=== PATIENT | male | born 1955 | race Caucasian/White ===

== ENCOUNTER 2018-07-30 07:32 | Day surgery (SDC) | payer BC, OTHER ==
[2018-07-27 15:25] VITALS: BMI 32.1
[2018-07-30] MEDS ORDERED: MIDAZOLAM HCL 2 MG/2 ML SINGLE DOSE VIAL ONE (09:35)
[2018-07-30] MEDS ORDERED: PROPOFOL 20 ML ONE (09:36)
[2018-07-30] MEDS ORDERED: DEXAMETHASONE SOD PHOSPHATE 4 MG/1 ML VIAL ONE (10:12)
--- NOTE | 2018-07-30 10:18 | OP ---
Operative Note - Note: Operative Date: 07/30/18 Pre-Operative Diagnosis: hematuria/urethral stricture Operation: cystoscopy/urethral dilation Findings: moderate bulbous ureteral stricture Post-Operative Diagnosis: Same as Pre-op Surgeon: Momo Maza Anesthesia: General
[2018-07-30] MEDS ORDERED: PROMETHAZINE HCL 25 MG/1 ML VIAL IVPUSH PRN (10:24)
[2018-07-30] MEDS ORDERED: oxyCODONE HCL 5 MG TABLET PO PRN (10:24)
[2018-07-30 13:26] VITALS: BP 132/76; PULSE 74; TEMP 98.6
--- NOTE | 2018-07-30 18:27 | OP ---
DATE OF OPERATION: 07/30/2018 PREOPERATIVE DIAGNOSES: Microscopic hematuria and urethral stricture. POSTOPERATIVE DIAGNOSES: Microscopic hematuria and urethral stricture. PROCEDURE: Cystoscopy and urethral dilation. ATTENDING: Idalmis Gomez MD ANESTHESIA: General. OPERATION: The patient has a history of urethral stricture noted on office cystoscopy. A cystoscopy could not be performed in the office setting due to the stricture. The patient accepts all risks and benefits for the designated procedure today. Patient is placed in a supine position on the operating room table. General anesthesia and preoperative antibiotics were administered. Patient was then placed in the dorsal lithotomy position and prepped and draped in the usual sterile manner. A cystoscopy was performed, and a bulbous urethral stricture was noted. Sounds were utilized, and the urethra was dilated sequentially to 26-Sing[place]an. No complications were noted during the dilation. At this point, cystoscopy was performed, and the prostatic fossa was entered. The sphincteric mechanism was noted to be intact with no evidence of false passage in this area. A 3+ obstructive prostate with a 2+ to 3+ bladder neck is noted. No evidence of a median lobe is appreciated. The bladder was inspected, and there was no evidence of neoplasm or stones. One plus large trabeculations were appreciated. Both ureteral orifices appear to be normal. Efflux of urine is noted from both ureteral orifices. The patient tolerated the procedure very well. No complication was noted. The patient left without a Shay catheter. IDALMIS GOMEZ M.D. /[id number]
== END 2018-07-30 13:40 | disposition home or self-care (01) ==
LOC: JASU-SURG 07:32
PROVIDERS: ATTEND Urology
PROC: 0T7D8ZZ Dilation of Urethra, Via Natural or Artificial Opening Endoscopic (ICD-10-PCS; principal; 2018-07-30 09:00)
DX: N35.919 Unspecified urethral stricture, male, unspecified site (principal); I10 Essential (primary) hypertension; G47.30 Sleep apnea, unspecified
CPT/HCPCS: 94760

== ENCOUNTER 2020-03-19 06:27 | Day surgery (SDC) | payer OTHER, BC ==
--- NOTE | 2020-03-18 13:58 | HP ---
[facility] - Chief Complaint Chief Complaint: left hand pain, numbness - Past Medical History Allergies/Adverse Reactions: Allergies Allergy/AdvReac Type Severity Reaction Status Date / Time chlorthalidone Allergy Rash Verified 03/13/20 14:32 telmisartan Allergy "facial Verified 07/27/18 15:39 swelling/distortion) - Current Medications Current Medications: Home Medications Medication Instructions Recorded Aspirin Coated [Ecotrin -] 81 mg PO DAILY 07/27/18 Atorvastatin Ca [Lipitor] 10 mg PO HS 07/27/18 Flecainide Acetate 150 mg PO BID 07/27/18 Amlodipine Besylate 10 mg PO DAILY 03/13/20 Satellite Physical Exam - Physical Examination General Appearance: Well Nourished, Well Developed, Alert & Oriented x3 ENT: Clear Lung: Normal air movement Extremities: Other (left hand- + tinels, + phalens, emg + cts) Neurological: Intact, Alert, Oriented [facility]ellite Impression/Plan - Impression/Plan Impression: left cts Operative Procedure: left ctr Date to be Performed: 03/18/20
[2020-03-19 07:29] VITALS: BMI 31.4
[2020-03-19] MEDS ORDERED: LIDOCAINE HCL/PF 2% SDV 5ML VIAL ONE (08:37)
[2020-03-19] MEDS ORDERED: KETOROLAC TROMETHAMINE 30 MG/1 ML VIAL ONE (08:37)
[2020-03-19] MEDS ORDERED: ONDANSETRON 4 MG/2 ML VIAL ONE (08:37)
[2020-03-19] MEDS ORDERED: PROPOFOL 20 ML ONE (08:38)
[2020-03-19] MEDS ORDERED: MIDAZOLAM HCL 2 MG/2 ML SINGLE DOSE VIAL ONE (08:38)
[2020-03-19] MEDS ORDERED: LIDOCAINE HCL 1%, 10 MG/ML (20ML VIAL) ONE (08:39)
[2020-03-19] MEDS ORDERED: BUPIVACAINE HCL/PF 0.25% (2.5MG/ML) 10 ML VIAL ONE (08:39)
[2020-03-19] MEDS ORDERED: ceFAZolin SODIUM 1 GM VIAL ONE (08:56)
[2020-03-19] MEDS ORDERED: oxyCODONE HCL 5 MG TABLET PO PRN (09:42)
[2020-03-19] MEDS ORDERED: ONDANSETRON 4 MG/2 ML VIAL IVPUSH PRN (09:42)
[2020-03-19] MEDS ORDERED: LACTATED RINGERS SOLUTION 1,000 ML IV SCH (09:45)
--- NOTE | 2020-03-19 09:46 | OP ---
Operative Note - Note: Operative Date: 03/19/20 Pre-Operative Diagnosis: left CTS Operation: left CTR, tenosynovectomy Post-Operative Diagnosis: Same as Pre-op Surgeon: Scar Hopkins Anesthesiologist/ARCHIVIST: Linda Solorzano Anesthesia: Local, MAC Specimens Removed: tenosynovium Estimated Blood Loss (mls): 0 Drains, Volume Out (mls): 0 Blood Volume Replaced (mls): 0 Fluid Volume Replaced (mls): 500 Operative Report Dictated: Yes
[2020-03-19 11:11] VITALS: PULSE 58; TEMP 98.1
[2020-03-19 11:47] VITALS: BP 130/72
--- NOTE | 2020-03-19 23:32 | SPEC ---
DATE OF OPERATION: 03/19/2020 PREOPERATIVE DIAGNOSIS: Left carpal tunnel syndrome, tenosynovitis. POSTOPERATIVE DIAGNOSIS: Left carpal tunnel syndrome, tenosynovitis. PROCEDURE: Left carpal tunnel release and tenosynovectomy. SURGEON: Kathya Martinez MD. CATERER'S AIDE: None. ANESTHESIOLOGIST: Linda Solorzano MD. ANESTHESIA: MAC anesthesia with local injection of 12 mL 0.5% Marcaine, 1% lidocaine. DRAINS: None. COMPLICATIONS: None. SPECIMENS: Tenosynovium left wrist. BLOOD LOSS: None. BLOOD GIVEN: None. FLUID REPLACEMENT: 500 mL Plasmalyte. INDICATION: This patient is a 64-year-old male with the preoperative diagnosis of severe recurrent left carpal tunnel syndrome and tenosynovitis. After understanding the potential risks, complications, alternatives, benefits to surgery versus nonsurgical treatment, the patient elected to undergo this procedure. DESCRIPTION OF PROCEDURE: The patient was brought to the operating room, peripheral IV placed and intravenous sedation was given. One gram of intravenous Ancef was given. MAC anesthesia was induced. A tourniquet was applied to the left upper arm and the left upper extremity was prepped and draped in sterile fashion. The entire case was done under 3.8 loupe magnification. A marking pen was utilized to beatriz out a longitudinal incision in an already existing skin crease. Twenty mL of 0.5% Marcaine mixed with 1% Lidocaine was injected in and around the surgical incision. The left upper extremity was elevated, exsanguinated with an Esmarch bandage and the tourniquet inflated to 250 mmHg. A No. 15 scalpel blade was utilized to cut down through the skin. Subcutaneous hemostasis was achieved with the bipolar cautery. Dissection was done through the superficial palmar fascia. Self-retaining retractors were placed into the wound. Under direct visualization, the transverse carpal ligament was transected with a No. 15 scalpel blade, exposing the median nerve and the contents of the carpal tunnel. The distal and proximal extents of the release were completed with a Littler scissor and checked with irrigation and my small finger. They were seen to be complete. Limited dissection was done on the radial side of the median nerve and more extensive dissection was done on the ulnar side of the median nerve. The patients nerve was seen to be quite compressed by epineurium and therefore a limited epineurotomy was performed. A Ragnell retractor was used to gently retract the median nerve in a radial direction. The patient had a lot of tenosynovitis and therefore a tenosynovectomy was performed off all 9 flexor tendons. This was passed off the field as tenosynovium left wrist. The floor of the carpal tunnel was checked. There were no abnormal masses or ganglion cysts. The area was copiously irrigated and washed out and closure begun. Undyed 4-0 Vicryl was used to close the deep dermal layer. Final skin reapproximation was done with horizontal mattress 4-0 nylon sutures. The area was then washed and dried, covered with Xeroform, 4x4s, fluffs between the fingers, Webril and a 4-inch plaster roll was utilized to make a volar splint, which was then wrapped with Sheri and Coban. The tourniquet was taken down after a total tourniquet time of 18 minutes. There were no complications during the case. The patient tolerated the procedure well and was brought to the ambulatory recovery room in stable condition. KATHYA MARTINEZ M.D. [id number]
--- NOTE | 2020-03-24 16:08 | PATH ---
Surgical Pathology Report Patient Name: ANGELA QUESADA [facility]. Rec. #: [id number] /Age/Gender: 1955 (Age: 64) / M Account: [id number] [facility] Taken: 03/19/2020 Received: 03/19/2020 Reported: 03/24/2020 Physicians: Scar Hopkins M.D. Specimen(s) Received TENOSYNOVIUM TISSUE Clinical History Carpal tunnel syndrome Final Diagnosis TENOSYNOVIUM TISSUE, RESECTION: TENOSYNOVIAL TISSUE WITH FOCAL FIBROSIS. Electronically Signed Cristy Ferrer M.D. Gross Description Received in formalin labeled "tenosynovium tissue," is a 1.9 x 1.4 x 0.3 cm aggregate of hammond-yellow portions of soft tissue, consistent with tenosynovium. The specimen is entirely submitted in one cassette. DL/03/20/2020 saudi/03/20/2020
== END 2020-03-19 11:49 | disposition home or self-care (01) ==
LOC: FASU 06:27
PROVIDERS: ATTEND Orthopaedic Surgery
PROC: 0LB80ZZ Excision of Left Hand Tendon, Open Approach (ICD-10-PCS; 2020-03-19)
PROC: 01N50ZZ Release Median Nerve, Open Approach (ICD-10-PCS; principal; 2020-03-19 09:15)
DX: G56.02 Carpal tunnel syndrome, left upper limb (principal); M65.842 Other synovitis and tenosynovitis, left hand
CPT/HCPCS: 88304-TC; 94760

== ENCOUNTER 2022-09-01 04:22 | Day surgery (SDC) | payer OTHER, BC ==
[2022-09-01 08:35] VITALS: BMI 30.9
[2022-09-01 10:18] VITALS: TEMP 97.5
[2022-09-01 10:56] VITALS: BP 115/61; PULSE 75; RESP 9
== END 2022-09-01 11:14 | disposition home or self-care (01) ==
LOC: JASU-ENDO 04:22
PROVIDERS: ATTEND Internal Medicine Gastroenterology
PROC: 0DJD8ZZ Inspection of Lower Intestinal Tract, Via Natural or Artificial Opening Endoscopic (ICD-10-PCS; principal; 2022-09-01 09:30)
DX: Z12.11 Encounter for screening for malignant neoplasm of colon (principal); K59.89 Other specified functional intestinal disorders; Z86.010 Personal history of colon polyps